=== PATIENT | female | born 1980 | race Caucasian/White ===

== ENCOUNTER 2021-05-16 09:11 | Day surgery (SDC) | payer OTHER ==
[~2021-05-16] VITALS: Ht 157.5 cm; Wt 60.0 kg
[~2021-05-16 09:11] MED LIST: ACETAMINOPHEN 500 MG TABLET PO PRN; BUPIVACAINE-EPI 0.25%-1:200000 MPF 30 ML VIAL. ONE; HYDROmorphone 2 MG/ML VIAL IVP PRN; IV RINGERS,LACTATED 1000ML 1,000 ML IV SCH; PROCHLORPERAZINE 10 MG/2 ML VIAL. IVP PRN; SUGAMMADEX SODIUM 200 MG/2 ML VIAL. IVP ONE; ceFAZolin SODIUM IV Push 1 GM VIAL. IVP PRN; fentaNYL PF VIAL 100 MCG/2 ML VIAL IVP PRN
[2021-05-16] MEDS ORDERED: ROCURONIUM 50 MG/5 ML VIAL. ONE (09:59)
[2021-05-16] MEDS ORDERED: fentaNYL PF VIAL 250 MCG/5 ML VIAL ONE (09:59)
[2021-05-16] MEDS ORDERED: LIDOCAINE 2% PF 5 ML VIAL. ONE (09:59)
[2021-05-16] MEDS ORDERED: PROPOFOL 10 MG/ML (20ML) VIAL. IV ONE (09:59)
[2021-05-16] MEDS ORDERED: MIDAZOLAM HCL/PF 2 MG/2 ML VIAL. ONE (09:59)
[2021-05-16] MEDS ORDERED: SEVOFLURANE 31 TO 60 MINUTES. IH ONE (11:03)
[2021-05-16] MEDS ORDERED: ONDANSETRON PF 4 MG/2 ML VIAL. ONE ×2 (11:03→12:07)
[2021-05-16] MEDS ORDERED: DEXAMETHASONE SOD PHOS 4 MG/ML VIAL ONE (11:03)
[2021-05-16] MEDS ORDERED: GLYCOPYRROLATE 1 MG/5 ML VIAL. ONE (11:05)
--- NOTE | 2021-05-16 11:28 | PDOC4 ---
Operative Note Operative Note Date: May 16, 2021 at 1125 Preoperative diagnosis: Chronic cholecystitis cholelithiasis Postoperative diagnosis: Same Procedure: Laparoscopic cholecystectomy with fluorescein cholangiography Surgeon: Khadar Specimen: Gallbladder Dictation: Patient is a 41-year-old female with complaints of right upper quadrant abdominal pain ultrasound showing gallstones. Procedure of laparoscopic cholecystectomy was explained to the patient detail risk benefits were also discussed including bleeding infection injury to intra-abdominal contents possible necessitating further open operations alternatives to this procedure also discussed with patient who seemed to understand and gave both verbal and written consent to have the procedure performed. Patient was taken to the operating room placed in the supine position general anesthesia was initiated once patient was sleeping intubated her abdomen was prepped and draped usual sterile fashion using ChloraPrep. An area just below the umbilicus was injected with quarter percent Marcaine with epinephrine incision was made 11 blade scalpel and a varies needle was placed within the abdomen creating pneumoperitoneum once this was complete 11 mm port was placed and a 5 mm camera's placed within the abdomen which was inspected no other abnormalities were noted 5 mm port was placed in the epigastrium a 5 mm port was placed in the right midabdomen a 5 mm port was placed in the right lateral abdomen all under direct visualization. The dome of the gallbladder is grasped retracted cephalad the infundibulum the gallbladder is grasped retracted laterally exposing the triangle adherent tissues of the triangle were taken down with blunt dissection exposing the cystic duct and cystic artery fluorescein cholangiography was performed which showed dye within the cystic duct as well as the common bile duct without any evidence of obstruction. The cystic duct was doubly clipped and transected the cystic artery was clipped and transected the gallbladder is taken off the liver with hook electrocautery placed in the Endo Catch bag moving the umbilicus right upper quadrant was irrigated suctioned dry hemostasis deemed be appropriate the pneumoperitoneum was reduced and all ports were removed the fascial defect at the umbilicus was closed with a [id number] 0 Vicryl suture and the skin was reapproximated all port sites for subcuticular Monocryl Mastisol Steri-Strips and island dressings were applied. Patient was awakened and extubated in the operating room taken recovery in stable condition all sponge instrument needle counts listed as correct estimated blood loss 10 mL SAVANAH CLINTON MD May 16, 2021 11:28
[2021-05-16] MEDS ORDERED: OXYC-325 PO (11:30)
--- NOTE | 2021-05-16 11:32 | DISCH ---
DISCHARGE INSTRUCTIONS Condition on Discharge Condition on Discharge: Stable Activity After Discharge Activity Instructions for Disc: Avoid exertion Other activity instructions: No lifting more than 20 pounds for 2 weeks Diet after Discharge Diet after Discharge: Low Fat Wound Incision Care Other wound/incision instructi: Elvi elizalde 24-hour Contacting the after DC Call your doctor for: If your condition worsens Follow-Up Follow up with: Dr. Clinton in 2 weeks SAVANAH CLINTON MD May 16, 2021 11:32
[2021-05-16] MEDS ORDERED: fentaNYL PF VIAL 100 MCG/2 ML VIAL ONE (11:41)
[2021-05-16] MEDS: fentaNYL PF VIAL 100 MCG/2 ML VIAL IVP PRN ×2 (11:48→12:00)
[2021-05-16] MEDS ORDERED: MORPHINE SULFATE 2 MG/ML INJ. ONE (11:58)
[2021-05-16] MEDS: MORPHINE SULFATE 2 MG/ML INJ. IVP PRN ×2 (12:00→12:17)
[2021-05-16] MEDS ORDERED: PROCHLORPERAZINE 10 MG/2 ML VIAL. ONE (12:10)
[2021-05-16] MEDS ORDERED: oxyCODONE/APAP 5/325 1 TAB TABLET PO ONE (12:15)
[2021-05-16 12:50] VITALS: BP 110/66
--- NOTE | 2021-05-21 20:15 | PATHOLOGY ---
[facility] Accession Number: [id number] . 01 Material submitted: . gallbladder - GALLBLADDER AND CONTENTS . 01 Clinical history: . CHRONIC CHOLECYSTITIS LAP CHOLECYSTECTOMY . 02 Diagnosis: Gallbladder, excision: - Chronic cholecystitis; negative for malignancy. - Multiple polyps, with gastric foveolar metaplasia and intestinal metaplasia; negative for dysplasia and malignancy. - Lithiasis. (MLK:deidre; 05/20/2021) QMS 05/21/2021 1923 Local . 02 Electronically signed: . Castro Lazar MD, Pathologist NPI- [id number] . 01 Gross description: . Fixative: Formalin Labeled: Gallbladder and contents Specimen received: Intact Dimensions: 6.6 x 3.2 x 2.8 cm Serosa: Smooth, vyas-green with a roughened hepatic bed Lymph node: No Mucosa: Velvety, brown-green Average wall thickness: 0.4 cm Calculi: Yes multiple green-yellow calculi measuring in aggregate 4.6 x 4.1 x 1.2 cm Abnormalities: There are at least four green polyps (ranging from 0.2 x 0.2 x 0.2 cm to 0.3 x 0.3 x 0.2 cm), each of which appears confined to the mucosa and the nearest of which comes to within 3.4 cm from the cystic duct margin and to within 0.1 cm from the overlying adventitial margin. The mucosa also displays thickened areas of granularity (ranging from 0.2 x 0.2 x 0.2 cm to 0.4 x 0.3 x 0.2 cm) predominantly within the fundus and distal body. ([facility]; 05/19/2021) A1- [place] Pruner body, fundus, and the cystic duct margin (inked black). ([facility]; 05/17/2021) A2-A4: Polyps (entirely submitted) and areas of granularity represented (majority submitted) ([facility]; 05/19/2021) GZA/GZA 05/19/2021 1415 Local . 02 Pathologist provided ICD-10: K80.10, K82.4 . 02 CPT . 186253 Specimen Comment: A courtesy copy of this report has been sent to [phone] Specimen Comment: [id number] Specimen Comment: Report sent to , DR SELBY Specimen Comment: A duplicate report has been generated due to demographic updates. Performed at: 01 [facility] [address] [id number] MD Nash Thayer MD Phone: [phone] Performed at: [address] [id number] MD Yohannes Ken MD Phone: [phone]
== END 2021-05-16 13:00 | disposition home or self-care (01) ==
LOC: SURG 09:11
PROVIDERS: ATTEND Surgery
DX: K80.10 Calculus of gallbladder with chronic cholecystitis without obstruction (principal); F41.9 Anxiety disorder, unspecified; Z98.51 Tubal ligation status; Z90.710 Acquired absence of both cervix and uterus; Z98.890 Other specified postprocedural states; Z85.3 Personal history of malignant neoplasm of breast; Z79.899 Other long term (current) drug therapy; Z72.89 Other problems related to lifestyle
CPT/HCPCS: 47563; J0690; J0780; J1100; J2270; J2405; J2704; J3010; J3490; 88304; A4657; A4930; J2250